=== PATIENT | male | born 1945 | race Caucasian/White ===

== ENCOUNTER 2017-12-11 10:57 | Emergency (ER) | payer OTHER, MEDICARE, BC ==
[~2017-12-11 10:57] MED LIST: ALBU6.7H INH; APIX5 PO; DILTCD180 PO; ECOT81TA2 PO; FURO20 PO; GABA300C3 PO; KCL20 PO; LISI10 PO; MELO15 PO; METH10TA6 PO; METHY10 PO; METO100 PO; MORP30TA3 PO; MSIR15 PO; TEST-25 IM
[2017-12-11 11:13] VITALS: BP 149/93; PULSE 75; RESP 18; TEMP 98.1; O2SAT 97
--- NOTE | 2017-12-11 12:56 | RADRPT ---
EXAM DATE/TIME: 12/11/2017 12:19 [place] COMPARISON: No previous studies available for comparison. INDICATIONS : Left leg pain and swelling. MEDICAL HISTORY : Congestive heart failure. Hypercholesterolemia. Chronic obstructive pulmonary disease. Irregular h eart beat. DVT. Emphysema. GERD. Arthritis. SURGICAL HISTORY : Tonsillectomy. Appendectomy. Oral surgery. Cardiac cath. Colostomy. Bladder repair. Hand and left knee surgery. ENCOUNTER: Initial ACUITY: 4 - 6 days PAIN SCORE: 8/10 LOCATION: Left TECHNIQUE: Venous ultrasound of the leg was performed from the inguinal ligament to the proximal calf. Real-fabian e, color Doppler and spectral tracing, compression and augmentation techniques were used. FINDINGS: Deep venous thrombosis is present beginning in the posterior tibial vein vein extending into the comm on femoral vein to mid thigh. CONCLUSION: Positive for deep venous thrombosis above the knee. Ady Kelly MD FACR on December 11, 2017 at 12:53 Board Certified Radiologist. This report was verified electronically.
--- NOTE | 2017-12-11 14:01 | PD ---
HPI Chief Complaint: Edema Time Seen by Provider: 13:34 Travel History International Travel<30 days: No Contact w/Intl Traveler<30days: No Traveled to known affect area: No History of Present Illness HPI 72-year-old male presents to the emergency department sent by the [facility] for evaluation of the left lower extremity erythema and swelling that started on Thursday. Patient reports history of right total knee replacement 4 weeks ago. He does report history of blood clots. He was previously on Eliquis approximately 3 years ago. He went for routine lab work at the [facility] and asked to see a physician there and was referred to the emergency department. Patient has history of A. fib, AICD, CHF, hypertension. He denies any headache. No fevers or chills. He denies any chest pain or shortness of breath. No abdominal pain. No vomiting. Current pain is 8/10 to the left lower extremity , radiating to the thigh. No exacerbating or alleviating factors. Moderate severity. PFSH Past Medical History Arthritis: Yes Atrial Fibrillation: Yes Autoimmune Disease: No Blood Disorders: No Anxiety: Yes Depression: No Heart Rhythm Problems: Yes (AFIB) Cancer: No Cardiac Catheterization: Yes (2012) Cardiovascular Problems: Yes High Cholesterol: Yes Chemotherapy: No Chest Pain: No Congestive Heart Failure: Yes COPD: Yes Cerebrovascular Accident: No Diabetes: No Diminished Hearing: No Deep Vein Thrombosis: Yes Endocrine: No Gastrointestinal Disorders: Yes GERD: Yes Genitourinary: No Headaches: Yes Hypertension: Yes Immune Disorder: No Musculoskeletal: Yes Neurologic: Yes Psychiatric: Yes Reproductive: No Respiratory: Yes Migraines: Yes Myocardial Infarction: No Radiation Therapy: No Seizures: No Sleep Apnea: Yes (CPAP) Tetanus Vaccination: < 5 Years Influenza Vaccination: Yes Past Surgical History Abdominal Surgery: Yes (MULTIPLE SURGERIES INCLUDING COLOSTOMY- REVERSAL) AICD: No Appendectomy: Yes Body Medical Devices: MS PUMP 1999- REMOVED IN FEBRUARY 2006 Cardiac Surgery: No Cholecystectomy: Yes Coronary Artery Bypass Graft: No Ear Surgery: No Endocrine Surgery: No Eye Surgery: No Genitourinary Surgery: Yes (BLADDER REPAIR) Gynecologic Surgery: No Joint Replacement: Yes (L KNEE, R KNEE, RIGHT HIP) Oral Surgery: Yes Pacemaker: No Thoracic Surgery: No Tonsillectomy: Yes Other Surgery: Yes (SINUS SURG, NASAL SX, HEMORRHOIDECTOMY) Family History Family Myocardial Infarction: Yes Social History Alcohol Use: No Tobacco Use: No Substance Use: No Allergies-Medications (Allergen,Severity, Reaction): Coded Allergies: No Known Allergies (Verified Adverse Reaction, Unknown, 12/11/17) Reported Meds & Prescriptions Reported Meds & Active Scripts Active Eliquis (Apixaban) 5 Mg Tab 5 Mg PO BID Eliquis (Apixaban) 5 Mg Tab 10 Mg PO BID Reported Morphabond ER 12 HR (Morphine Sulfate) 30 Mg Tab 30 Mg PO Q12H Morphabond ER 12 HR (Morphine Sulfate) 15 Mg Tab 15 Mg PO Q12H Spironolactone 25 Mg Tab 25 Mg PO DAILY Gabapentin 300 Mg Cap 300 Mg PO TID Aspirin 81 Mg Chew 81 Mg CHEW DAILY Flexeril (Cyclobenzaprine HCl) 10 Mg Tab 10 Mg PO TID PRN Metoprolol Tartrate 100 Mg Tab 150 Mg PO BID Furosemide 20 Mg Tab 20 Mg PO BID Potassium Chloride ER (Potassium Chloride) 20 Meq Tab 20 Meq PO DAILY Meloxicam 15 Mg Tab 15 Mg PO HS Lisinopril 10 Mg Tab 10 Mg PO DAILY Testosterone Cypionate Inj (Testosterone Cypionate) 200 Mg/Ml Inj 200 Mg IM Q28D Review of Systems Except as stated in HPI: all other systems reviewed are Neg Physical Exam Narrative GENERAL: Well-nourished, well-developed male patient, afebrile. SKIN: Focused skin assessment warm/dry. HEAD: Normocephalic. Atraumatic. EYES: No scleral icterus. No injection or drainage. NECK: Supple, trachea midline. No JVD or lymphadenopathy. CARDIOVASCULAR: Regular rate and rhythm without murmurs, gallops, or rubs. Left pedal pulse 1-2+. RESPIRATORY: Breath sounds equal bilaterally. No accessory muscle use. Lung sounds are clear to auscultation GASTROINTESTINAL: Abdomen soft, non-tender, nondistended. MUSCULOSKELETAL: No cyanosis. Patient has 3+ edema of the left lower extremity with tenderness to palpation over the calf and thigh. He also has mild erythema noted to the left calf. BACK: Nontender without obvious deformity. No CVA tenderness. Data Data Last Documented VS Vital Signs Date Time Temp Pulse Resp B/P (MAP) Pulse Ox O2 Delivery O2 Flow Rate FiO2 12/11/17 15:09 71 18 149/86 (107) 98 Room Air 12/11/17 11:13 98.1 Orders Orders Us Leg Venous Doppler (12/11/17 ) Complete Blood Count With Diff (12/11/17 13:46) Basic Metabolic Panel (Bmp) (12/11/17 13:46) Act Partial Throm Time (Ptt) (12/11/17 13:46) Prothrombin Time / Inr (Pt) (12/11/17 13:46) Iv Access Insert/Monitor (12/11/17 13:46) Apixaban (Eliquis) (12/11/17 15:15) Ed Discharge Order (12/11/17 15:10) Labs Laboratory Tests Test 12/11/17 13:55 White Blood Count 7.8 TH/MM3 Red Blood Count 4.75 MIL/MM3 Hemoglobin 14.3 GM/DL Hematocrit 42.0 % Mean Corpuscular Volume 88.3 FL Mean Corpuscular Hemoglobin 30.0 PG Mean Corpuscular Hemoglobin Concent 34.0 % Red Cell Distribution Width 15.4 % Platelet Count 122 TH/MM3 Mean Platelet Volume 7.3 FL Neutrophils (%) (Auto) 63.2 % Lymphocytes (%) (Auto) 22.7 % Monocytes (%) (Auto) 10.9 % Eosinophils (%) (Auto) 2.5 % Basophils (%) (Auto) 0.7 % Neutrophils # (Auto) 4.9 TH/MM3 Lymphocytes # (Auto) 1.8 TH/MM3 Monocytes # (Auto) 0.8 TH/MM3 Eosinophils # (Auto) 0.2 TH/MM3 Basophils # (Auto) 0.1 TH/MM3 CBC Comment DIFF FINAL Differential Comment Prothrombin Time 10.7 SEC Prothromb Time International Ratio 1.1 RATIO Activated Partial Thromboplast Time 25.8 SEC Blood Urea Nitrogen 15 MG/DL Creatinine 1.15 MG/DL Random Glucose 114 MG/DL Calcium Level 8.4 MG/DL Sodium Level 139 MEQ/L Potassium Level 4.3 MEQ/L Chloride Level 104 MEQ/L Carbon Dioxide Level 29.7 MEQ/L Anion Gap 5 MEQ/L Estimat Glomerular Filtration Rate 63 ML/MIN [facility] Medical Decision Making Medical Screen Exam Complete: Yes Emergency Medical Condition: Yes Medical Record Reviewed: Yes Differential Diagnosis DVT versus cellulitis versus idiopathic edema Narrative Course 72-year-old male presents to the emergency department for evaluation of swelling and pain as well as erythema to the left lower extremity. Patient was sent by the [facility] for ultrasound to rule out DVT. Ultrasound was completed in triage of the left leg which is positive for DVT beginning in the posterior tibial vein extending into the common femoral vein to mid thigh. Patient is asking to be placed on Eliquis as he has been on this in the past. CBC, BMP, PTT, PT/INR ordered and pending CBC shows no acute abnormality. BMP shows no acute abnormality. Coags are unremarkable. Patient will be started on Eliquis for DVT. He will also be started on Keflex for possible cellulitis. He is instructed on proper management and to follow up with the [facility]. He is to return here for any acute, worsening of symptoms. Diagnosis Primary Impression: DVT (deep venous thrombosis) Qualified Codes: I82.442 - Acute embolism and thrombosis of left tibial vein Referrals: Primary Care Physician 2 days Patient Instructions: Apixaban (By mouth), Deep Venous Thrombosis (ED), General Instructions Additional Instructions: Take Eliquis as directed. Take 10 mg twice daily for 1 week and then start 5 mg twice daily. Take antibiotic as directed until gone. Follow up at the [facility]. Return to the emergency department for any acute, worsening of symptoms. Med/Other Pt SpecificInfo: Prescription(s) given Scripts Cephalexin (Keflex) 500 Mg Cap 500 MG PO Q6H for Infection for 10 Days, #40 CAP 0 Refills Prov: Rosalinda Claudio 12/11/17 Apixaban (Eliquis) 5 Mg Tab 5 MG PO BID for Blood Clot Prevention, #60 TAB 0 Refills Prov: Rosalinda Claudio 12/11/17 Apixaban (Eliquis) 5 Mg Tab 10 MG PO BID for Blood Clot Prevention, #13 TAB 0 Refills Prov: Rosalinda Claudio 12/11/17 Disposition: 01 DISCHARGE HOME Condition: Stable Rosalinda Claudio Dec 11, 2017 14:01
[2017-12-11] MEDS ORDERED: MORP-44 PO (14:04)
[2017-12-11] MEDS ORDERED: CYCL10TA PO (14:04)
[2017-12-11] MEDS ORDERED: GABA300C5 PO (14:04)
[2017-12-11] MEDS ORDERED: TEST200I12 IM (14:04)
[2017-12-11] MEDS ORDERED: MELO15TA20 PO (14:04)
[2017-12-11] MEDS ORDERED: METO100T PO (14:04)
[2017-12-11] MEDS ORDERED: POTA-163 PO (14:04)
[2017-12-11] MEDS ORDERED: FURO20TA PO (14:04)
[2017-12-11] MEDS ORDERED: ASPI-516 CHEW (14:04)
[2017-12-11] MEDS ORDERED: SPIR25TA PO (14:04)
[2017-12-11] MEDS ORDERED: LISI10TA3 PO (14:04)
[2017-12-11] MEDS ORDERED: MORP-43 PO (14:04)
[2017-12-11 14:11] VITALS: BP 173/86; PULSE 70; RESP 19; O2SAT 98
[2017-12-11 14:25] LABS: AUTOMATED NEUTROPHIL # 4.9 TH/MM3 (1.8-7.7); BASOPHIL # 0.1 TH/MM3 (0-0.2); BASOPHIL % 0.7 % (0.0-2.0); EOSINOPHIL # 0.2 TH/MM3 (0-0.4); EOSINOPHIL % 2.5 % (0.0-4.0); HEMOGLOBIN 14.3 GM/DL (13.0-17.0); LYMPH % 22.7 % (9.0-44.0); LYMPHOCYTE # 1.8 TH/MM3 (1.0-4.8); MEAN CELL VOLUME 88.3 FL (80.0-100.0); MEAN PLATELET VOLUME 7.3 FL (7.0-11.0); MONO % 10.9 % (0.0-8.0); MONOCYTE # 0.8 TH/MM3 (0-0.9); NEUT % 63.2 % (16.0-70.0); PLATELET COUNT 122 TH/MM3 (150-450); RED BLOOD COUNT 4.75 MIL/MM3 (4.50-5.90); RED CELL DISTRIBUTION WIDTH 15.4 % (11.6-17.2); WHITE BLOOD COUNT 7.8 TH/MM3 (4.0-11.0)
[2017-12-11 14:42] LABS: INTERNATIONAL NORMALIZED RATIO 1.1 RATIO; PROTHROMBIN TIME - PATIENT 10.7 SEC (9.8-11.6)
[2017-12-11 14:46] LABS: BICARBONATE 29.7 MEQ/L (21.0-32.0); CALCIUM 8.4 MG/DL (8.5-10.1); CREATININE 1.15 MG/DL (0.60-1.30)
[2017-12-11] MEDS ORDERED: APIX5TAB PO (15:07)
[2017-12-11 15:09] VITALS: BP 149/86; PULSE 71; RESP 18; O2SAT 98
[2017-12-11] MEDS ORDERED: CEPH-460 PO (15:12)
[2017-12-11] MEDS ORDERED: APIXABAN 5 MG TABLET PO ONE (15:15)
== END 2017-12-11 15:34 | disposition home or self-care (01) ==
LOC: NEPC 10:57
DX: I82.442 Acute embolism and thrombosis of left tibial vein (principal); I11.0 Hypertensive heart disease with heart failure; I48.91 Unspecified atrial fibrillation; I50.9 Heart failure, unspecified; E78.00 Pure hypercholesterolemia, unspecified; J44.9 Chronic obstructive pulmonary disease, unspecified; Z79.899 Other long term (current) drug therapy
CPT/HCPCS: 80048; 85025; 85610; 85730; 93971

== ENCOUNTER 2018-01-27 19:15 | Emergency (ER) | payer BC, MEDICARE, OTHER ==
[~2018-01-27 19:15] MED LIST changes: -ALBU6.7H INH; -APIX5 PO; +APIX5TAB PO; +ASPI-516 CHEW; +CEPH-460 PO; +CYCL10TA PO; -DILTCD180 PO; -ECOT81TA2 PO; -FURO20 PO; +FURO20TA PO; -GABA300C3 PO; +GABA300C5 PO; -KCL20 PO; -LISI10 PO; +LISI10TA3 PO; -MELO15 PO; +MELO15TA20 PO; -METH10TA6 PO; -METHY10 PO; -METO100 PO; +METO100T PO; +MORP-43 PO; +MORP-44 PO; -MORP30TA3 PO; -MSIR15 PO; +POTA-163 PO; +SPIR25TA PO; -TEST-25 IM; +TEST200I12 IM
[2018-01-27 19:43] VITALS: BP 164/78; PULSE 78; RESP 16; TEMP 98.3; O2SAT 96
[2018-01-27 19:58] VITALS: BP 160/80; PULSE 73; RESP 16; O2SAT 98
[2018-01-27] MEDS ORDERED: MORP-44 PO (20:09)
--- NOTE | 2018-01-27 20:15 | PD ---
HPI . Leg swelling Chief Complaint: Pain: Acute or Chronic Time Seen by Provider: 19:56 Travel History International Travel<30 days: No Contact w/Intl Traveler<30days: No Traveled to known affect area: No History of Present Illness HPI Patient is a 72-year-old male who was on Eliquis since November for a DVT in his left common vein, pt reports worsening swelling of left lower leg and [facility] that showed popliteal to superfical femoral vein clot . he feels swelling worse and pain much worse in last 2 days PFSH Past Medical History Arthritis: Yes Atrial Fibrillation: Yes Autoimmune Disease: No Blood Disorders: No Anxiety: Yes Depression: No Heart Rhythm Problems: Yes (AFIB) Cancer: No Cardiac Catheterization: Yes (2012) Cardiovascular Problems: Yes (DEFIBULATOR) High Cholesterol: Yes Chemotherapy: No Chest Pain: No Congestive Heart Failure: Yes COPD: Yes Cerebrovascular Accident: No Diabetes: No Diminished Hearing: No Deep Vein Thrombosis: Yes Endocrine: No Gastrointestinal Disorders: Yes GERD: Yes Genitourinary: No Headaches: Yes Hypertension: Yes Immune Disorder: No Musculoskeletal: Yes Neurologic: Yes Psychiatric: Yes Reproductive: No Respiratory: Yes (COPD) Migraines: Yes Myocardial Infarction: No Radiation Therapy: No Seizures: No Sleep Apnea: Yes (CPAP) Past Surgical History Abdominal Surgery: Yes (MULTIPLE SURGERIES INCLUDING COLOSTOMY- REVERSAL) AICD: No Appendectomy: Yes Body Medical Devices: MS PUMP 2000- REMOVED IN FEBRUARY 2006 Cardiac Surgery: No Cholecystectomy: Yes Coronary Artery Bypass Graft: No Ear Surgery: No Endocrine Surgery: No Eye Surgery: No Genitourinary Surgery: Yes (BLADDER REPAIR) Gynecologic Surgery: No Joint Replacement: Yes (L KNEE, R KNEE, RIGHT HIP) Oral Surgery: Yes Pacemaker: No Thoracic Surgery: No Tonsillectomy: Yes Other Surgery: Yes (SINUS SURG, NASAL SX, HEMORRHOIDECTOMY) Family History Family Myocardial Infarction: Yes Social History Alcohol Use: No Tobacco Use: No Substance Use: No Allergies-Medications (Allergen,Severity, Reaction): Coded Allergies: No Known Allergies (Verified Adverse Reaction, Unknown, 01/27/18) Reported Meds & Prescriptions Reported Meds & Active Scripts Active Eliquis (Apixaban) 5 Mg Tab 10 Mg PO BID Reported Morphabond ER 12 HR (Morphine Sulfate) 30 Mg Tab 30 Mg PO TID Spironolactone 25 Mg Tab 25 Mg PO DAILY Gabapentin 300 Mg Cap 300 Mg PO TID Flexeril (Cyclobenzaprine HCl) 10 Mg Tab 10 Mg PO TID PRN Metoprolol Tartrate 100 Mg Tab 150 Mg PO BID Furosemide 20 Mg Tab 20 Mg PO BID Potassium Chloride ER (Potassium Chloride) 20 Meq Tab 20 Meq PO DAILY Meloxicam 15 Mg Tab 15 Mg PO HS Lisinopril 10 Mg Tab 10 Mg PO DAILY Review of Systems Except as stated in HPI: all other systems reviewed are Neg Respiratory: No: Shortness of Breath, Wheezing Gastrointestinal: No: Abdominal Pain Musculoskeletal: Positive: Edema, Other (swelling to left lower leg) Physical Exam Narrative GENERAL: non toxic appearance SKIN: Warm and dry. HEAD: Atraumatic. Normocephalic. EYES: Pupils equal and round. No scleral icterus. No injection or drainage. ENT: No nasal bleeding or discharge. Mucous membranes pink and moist. NECK: Trachea midline. No JVD. CARDIOVASCULAR: Regular rate and rhythm. RESPIRATORY: No accessory muscle use. Clear to auscultation. Breath sounds equal bilaterally. GASTROINTESTINAL: Abdomen soft, non-tender, nondistended. Hepatic and splenic margins not palpable. MUSCULOSKELETAL: Extremities-- Left lower leg has swelling redness and tenderness to medial aspect of the left upper thigh tender hard chord like feeling to palpation NEUROLOGICAL: Awake and alert. No obvious cranial nerve deficits. Motor grossly within normal limits. Five out of 5 muscle strength in the arms and legs. Normal speech. PSYCHIATRIC: Appropriate mood and affect; insight and judgment normal. Data Data Last Documented VS Vital Signs Date Time Temp Pulse Resp B/P (MAP) Pulse Ox O2 Delivery O2 Flow Rate FiO2 01/27/18 23:01 01/27/18 19:58 73 16 98 01/27/18 19:43 98.3 Orders Orders Complete Blood Count With Diff (01/27/18 20:10) Comprehensive Metabolic Panel (01/27/18 20:10) Prothrombin Time / Inr (Pt) (01/27/18 20:10) Us Leg Venous Doppler (01/27/18 ) Ed Discharge Order (01/27/18 22:27) Labs Laboratory Tests Test 01/27/18 20:20 White Blood Count 5.0 TH/MM3 Red Blood Count 4.78 MIL/MM3 Hemoglobin 13.8 GM/DL Hematocrit 41.6 % Mean Corpuscular Volume 87.1 FL Mean Corpuscular Hemoglobin 28.8 PG Mean Corpuscular Hemoglobin Concent 33.1 % Red Cell Distribution Width 15.8 % Platelet Count 163 TH/MM3 Mean Platelet Volume 7.1 FL Neutrophils (%) (Auto) 50.8 % Lymphocytes (%) (Auto) 34.6 % Monocytes (%) (Auto) 9.3 % Eosinophils (%) (Auto) 4.0 % Basophils (%) (Auto) 1.3 % Neutrophils # (Auto) 2.5 TH/MM3 Lymphocytes # (Auto) 1.7 TH/MM3 Monocytes # (Auto) 0.5 TH/MM3 Eosinophils # (Auto) 0.2 TH/MM3 Basophils # (Auto) 0.1 TH/MM3 CBC Comment DIFF FINAL Differential Comment Prothrombin Time 10.3 SEC Prothromb Time International Ratio 1.0 RATIO Blood Urea Nitrogen 16 MG/DL Creatinine 1.06 MG/DL Random Glucose 107 MG/DL Total Protein 7.4 GM/DL Albumin 3.8 GM/DL Calcium Level 8.8 MG/DL Alkaline Phosphatase 81 U/L Aspartate Amino Transf (AST/SGOT) 16 U/L Alanine Aminotransferase (ALT/SGPT) 31 U/L Total Bilirubin 0.4 MG/DL Sodium Level 142 MEQ/L Potassium Level 4.1 MEQ/L Chloride Level 104 MEQ/L Carbon Dioxide Level 29.5 MEQ/L Anion Gap 9 MEQ/L Estimat Glomerular Filtration Rate 69 ML/MIN [facility]DM Medical Decision Making Medical Screen Exam Complete: Yes Emergency Medical Condition: Yes Medical Record Reviewed: Yes Differential Diagnosis DVT PROPAGATION INSPITE OF ELIQUIS AND NEEDS POSSIBLE IVC FILTER PT HAS DVT STUDY THAT SHOWED POPLITEAL TO COMMON FEMORAL VEIN,,,TODAY OUTPT DVT STUDY SHOWS SUPERFICIAL FEMORAL VEIN Narrative Course I spoke with radiologist Dr. Santos who reviewed the 2 films ultrasound from December 11 and ultrasound from today he says there is improvement and less clot burden in the popliteal and the common femoral. The superficial femoral vein which is a deep vein has the clot that was seen on prior study as well. Patient is safe to be discharged to continue Eliquis and follow with his director of medical education in the morning. Patient agrees with the plan safe for discharge Diagnosis Primary Impression: DVT (deep venous thrombosis) Qualified Codes: I82.409 - Acute embolism and thrombosis of unspecified deep veins of unspecified lower extremity Disposition: 01 DISCHARGE HOME Condition: Good Selwyn Santacruz MD Jan 27, 2018 20:15
[2018-01-27 20:54] LABS: AUTOMATED NEUTROPHIL # 2.5 TH/MM3 (1.8-7.7); BASOPHIL # 0.1 TH/MM3 (0-0.2); BASOPHIL % 1.3 % (0.0-2.0); EOSINOPHIL # 0.2 TH/MM3 (0-0.4); HEMATOCRIT 41.6 % (39.0-51.0); HEMOGLOBIN 13.8 GM/DL (13.0-17.0); LYMPH % 34.6 % (9.0-44.0); LYMPHOCYTE # 1.7 TH/MM3 (1.0-4.8); MEAN CELL VOLUME 87.1 FL (80.0-100.0); MEAN CORPUSCULAR HEMOGLOBIN 28.8 PG (27.0-34.0); MEAN CORPUSCULAR HGB CONC 33.1 % (32.0-36.0); MEAN PLATELET VOLUME 7.1 FL (7.0-11.0); MONO % 9.3 % (0.0-8.0); MONOCYTE # 0.5 TH/MM3 (0-0.9); NEUT % 50.8 % (16.0-70.0); PLATELET COUNT 163 TH/MM3 (150-450); RED BLOOD COUNT 4.78 MIL/MM3 (4.50-5.90); RED CELL DISTRIBUTION WIDTH 15.8 % (11.6-17.2)
[2018-01-27 21:03] LABS: PROTHROMBIN TIME - PATIENT 10.3 SEC (9.8-11.6)
[2018-01-27 21:08] LABS: ALBUMIN 3.8 GM/DL (3.4-5.0); AST (GOT) 16 U/L (15-37); BICARBONATE 29.5 MEQ/L (21.0-32.0); BLOOD UREA NITROGEN 16 MG/DL (7-18); CALCIUM 8.8 MG/DL (8.5-10.1); CHLORIDE 104 MEQ/L (98-107); CREATININE 1.06 MG/DL (0.60-1.30); GLOMERULAR FILTRATION RATE 69 ML/MIN (>89); GLUCOSE,RANDOM 107 MG/DL (74-106); SODIUM (NA) 142 MEQ/L (136-145)
[2018-01-27 21:09] LABS: ALT (GPT) 31 U/L (12-78)
[2018-01-27 21:11] LABS: ALKALINE PHOSPHATASE 81 U/L (45-117); TOTAL BILIRUBIN ADULT 0.4 MG/DL (0.2-1.0); TOTAL PROTEIN 7.4 GM/DL (6.4-8.2)
--- NOTE | 2018-01-27 22:08 | RADRPT ---
EXAM DATE: 01/27/2018 9:58 PM EDT AGE/SEX: 72 years / Male INDICATIONS: Left lower extremity pain and swelling. History of left leg deep vein thrombosis. CLINICAL DATA: This is the patient's subsequent encounter. Patient reports that signs and symptoms h ave been present for 2 months and indicates a pain score of 8/10. MEDICAL/SURGICAL HISTORY: . Congestive heart failure. Atrial fibrillation. Hypertension. Fiorella p vein thrombosis. COPD. Emphysema. Sleep apnea. . Tonsillectomy. Appendectomy. Cardiac leodan terization. Bladder repair. Bilateral hand. Left knee. Right knee. Right hip. Multiple left leg reconstructive surgery. COMPARISON: Ultrasound left leg 12/11/2017. No external comparison. TECHNIQUE: Venous ultrasound of both lower extremities was performed from the inguinal ligament to t he proximal calf. Real-time, color Doppler and spectral tracing, compression and augmentation techni ques were used. FINDINGS: Echogenic noncompressible material is seen extending from the below-knee popliteal vein through the s uperficial femoral vein. This is consistent with occlusive acute thrombus. The common femoral vein is patent as is the greater saphenous vein. Subcutaneous edema noted. CONCLUSION: 1. Acute DVT extending from the below-knee popliteal vein through the superficial femoral vein. Ther e is associated edema. Overall there has been some improvement in the thrombus burden within the post erior tibial vein and the common femoral vein. Electronically signed by: Cl Santos MD 01/27/2018 10:07 PM EDT
== END 2018-01-27 23:03 | disposition home or self-care (01) ==
LOC: NEPE 19:15
DX: I82.402 Acute embolism and thrombosis of unspecified deep veins of left lower extremity (principal); I11.0 Hypertensive heart disease with heart failure; I48.91 Unspecified atrial fibrillation; I50.9 Heart failure, unspecified; J44.9 Chronic obstructive pulmonary disease, unspecified; E78.00 Pure hypercholesterolemia, unspecified; Z86.718 Personal history of other venous thrombosis and embolism; Z79.01 Long term (current) use of anticoagulants; Z79.899 Other long term (current) drug therapy
CPT/HCPCS: 80053; 85025; 85610; 93971